=== PATIENT | female | born 1980 | race Caucasian/White ===

== ENCOUNTER 2019-11-21 12:09 | Outpatient (CLI) | payer OTHER ==
[2019-11-22 12:27] LABS: SARS-CoV-2 MS2 Positive; SARS-CoV-2 N Gene Negative; SARS-CoV-2 S Gene Negative; SARS-CoV-2 by NAA Not Detected (NotDetected); SARS-CoV-2 orf1ab Negative
== END 2019-11-21 12:10 | disposition home or self-care (01) ==
LOC: LABSCS 12:09
PROVIDERS: ATTEND Family Medicine
DX: Z20.828 Contact with and (suspected) exposure to other viral communicable diseases (principal)
CPT/HCPCS: 87635; U0003

== ENCOUNTER 2019-12-23 12:15 | Emergency (ER) | payer OTHER ==
[2019-12-23 13:02] LABS: #Basophils 0.1 thou/uL (0.0-0.2); #Eosinphils 0.1 thou/uL (0.0-0.7); #Lymphocytes 2.1 thou/uL (1.20-3.40); #Monocytes 0.5 thou/uL (0.11-0.59); #Neutrophils 5.1 thou/uL (1.40-6.50); %Basophils 0.7 % (0.0-1.0); %Lymphocytes 26.3 % (21.0-51.0); %Neutrophils 65.1 % (42.0-75.0); Mean Corpuscular HGB CONC 34.5 g/dL (32.0-36.0); Mean Corpuscular Hemoglobin 32.2 pg (27.0-31.0); Mean Corpuscular Volume 93.3 fL (78.0-98.0); Mean Platelet Volume 6.9 fL (7.4-10.4); Platelet Count 374 thou/uL (130-400); RBC Distribution Width 11.9 % (11.5-14.5); Red Blood Cell (RBC) Count 4.05 mill/uL (4.20-5.40); White Blood Cell (WBC) Count 7.8 thou/uL (4.8-10.8)
[2019-12-23] MEDS ORDERED: Morphine 4 MG/ML VIAL ONE ×2 (13:16→15:47)
[2019-12-23] MEDS ORDERED: Ondansetron PF 4 MG/2 ML Vial ONE (13:16)
[2019-12-23 13:24] LABS: ALT (SGPT) 29 U/L (8-55); AST (SGOT) 20 U/L (5-34); Albumin 4.2 g/dL (3.5-5.0); Alkaline Phosphatase 61 U/L (40-110); Anion Gap 13 mmol/L (10-20); BUN (Urea Nitrogen) 10 mg/dL (7.0-18.7); Bilirubin, Total 0.3 mg/dL (0.2-1.2); Calc. Creatinine Clearance 0 mL/min (70-130); Calcium 9.3 mg/dL (7.8-10.44); Carbon Dioxide 22 mmol/L (22-29); Chloride 107 mmol/L (98-107); Estimated GFR-MDRD 69; Globulin 2.9 g/dL (2.4-3.5); Glucose 110 mg/dL (70-105); Potassium 3.8 mmol/L (3.5-5.1); Protein, Total 7.1 g/dL (6.0-8.3); Sodium 138 mmol/L (136-145)
[2019-12-23] MEDS ORDERED: Iopamidol-370 76% 500 ML 1 ML ONE (13:35)
--- NOTE | 2019-12-23 14:26 | CT ---
CT ABDOMEN AND PELVIS WITH AND WITHOUT IV CONTRAST 12/23/2019 CLINICAL INFORMATION: Hematuria. Left flank pain. COMPARISON: None. Technique: Multiple contiguous axial CT images are obtained through the abdomen and pelvis with IV contrast. Cor onal reformatted images are provided. FINDINGS: Lower Chest: Lung bases are clear. Vessels: Abdominal aorta is normal in caliber with minimal eccentric atherosclerotic plaque in the in frarenal abdominal aorta. Incidental note is made of a retroaortic left renal vein. Abdomen: Portal vein:Patent Gallbladder: Surgically absent. Liver: Diminished attenuation suggesting diffuse fatty infiltration. Spleen: within normal limits. Pancreas: within normal limits. Adrenals: within normal limits. Kidneys: Normal in appearance. No renal or ureteral calculi are seen bilaterally, and there is no hyd ronephrosis. No enhancing renal mass is seen. Bowel: Normal caliber. Appendix: The appendix is visualized and normal in caliber. Peritoneum: Small amount of free fluid is seen in the lower pelvis posterior to the urinary bladder. Mesentery and Retroperitoneum: No enlarged mesenteric or retroperitoneal lymph nodes. Abdominal Wall: within normal limits. Pelvis: Reproductive Organs: Evidence of hysterectomy. A 2.2 cm hypodense cystic lesion with enhancing rim is seen within the left ovary likely related to a left ovarian cyst. Bladder: Normal in appearance. No urinary bladder wall thickening is seen. Bones: No suspicious lytic or sclerotic osseous lesions. IMPRESSION: 1. No renal or ureteral calculi are seen bilaterally, and there is no enhancing renal mass. 2. Minimal amount of free fluid in the lower pelvis. 3. Fatty eventration liver. 4. Probable left ovarian cyst. 6. Postoperative changes related to cholecystectomy and hysterectomy.
[2019-12-23 15:22] LABS: Bilirubin Negative (Negative); Blood, Urine Negative (Negative); Clarity Clear (Clear); Glucose, Urine (Dipstick) Normal (Negative); Ketone, Urine Negative (Negative); Leukocyte Negative Leu/uL (Negative); Nitrite Negative (Negative); Protein, Urine (Dipstick) Negative (Neg-Trace); Specific Gravity, Urine 1.024 (1.002-1.036); Urobilinogen Normal mg/dL (Less than 2)
== END 2019-12-23 15:58 | disposition home or self-care (01) ==
LOC: ERS 12:15
DX: R10.9 Unspecified abdominal pain (principal); E78.00 Pure hypercholesterolemia, unspecified; F41.9 Anxiety disorder, unspecified; Z87.891 Personal history of nicotine dependence
CPT/HCPCS: 36415; 74178; 80053; 81003; 85025; 87086; 96361; 96374; 96375; 96376; J2270; J2405; Q9967